=== PATIENT | female | born 1980 | race Caucasian/White ===

== ENCOUNTER → 2019-01-26 | Outpatient (CLI) | payer BC ==
[~2019-01-26] MED LIST: MULVITMIND PO; NUVA RING; PROBIOTIC1 EAC1 PO; Pepcid40 MG PO; Prednisone20 MG PO; SULTRIDS PO; TOPI50; WP THYROID PO; Zofran Odt8 MG SL
[2019-01-28 14:09] LABS: HPV 16 Negative (Negative); HPV 18 Negative (Negative); HPV OTHER HR TYPES Negative (Negative)
== END | disposition home or self-care (01) ==
LOC: LAB SHORT 11:02 → LAB 11:02
PROVIDERS: Nurse Practitioner Obstetrics & Gynecology
DX: Z01.419 Encounter for gynecological examination (general) (routine) without abnormal findings (principal)
CPT/HCPCS: 87624; G0123

== ENCOUNTER → 2020-02-02 | Outpatient (CLI) | payer BC ==
[2020-02-04 15:10] LABS: HPV 16 Negative (Negative); HPV 18 Negative (Negative); HPV OTHER HR TYPES Negative (Negative)
== END | disposition home or self-care (01) ==
LOC: LAB SHORT 10:31 → LAB 10:31
PROVIDERS: Advanced Practice Midwife
DX: Z01.419 Encounter for gynecological examination (general) (routine) without abnormal findings (principal)
CPT/HCPCS: 87624; G0123

== ENCOUNTER → 2021-07-10 | Outpatient (CLI) | payer BC ==
[2021-07-12 16:45] LABS: CORONAVIRUS (COVID19) CSH-NRL Negative (Negative)
== END | disposition home or self-care (01) ==
LOC: LAB SHORT 12:14 → LAB 12:14
PROVIDERS: Physician Assistant Medical
DX: Z20.822 Contact with and (suspected) exposure to COVID-19 (principal)
CPT/HCPCS: U0003

== ENCOUNTER → 2022-05-08 | Outpatient (CLI) | payer BC ==
[2022-05-09 15:10] LABS: HPV 16 Negative (Negative); HPV 18 Negative (Negative); HPV OTHER HR TYPES Negative (Negative)
== END | disposition home or self-care (01) ==
LOC: LAB 11:56 → LAB SHORT 11:56
PROVIDERS: Obstetrics & Gynecology
DX: Z01.419 Encounter for gynecological examination (general) (routine) without abnormal findings (principal)
CPT/HCPCS: 87624; G0123

== ENCOUNTER 2022-11-08 06:56 | Day surgery (SDC) | payer BC ==
[2022-11-07 14:49] LABS: BASOPHILS ABSOLUTE AUTO 0.06 K/mm3 (0.00-0.23); BASOPHILS PERCENT AUTO 1 % (0-2); EOSINOPHILS ABSOLUTE AUTO 0.04 K/mm3 (0.00-0.68); EOSINOPHILS PERCENT AUTO 0 % (0-6); Hematocrit 43.3 % (33.0-51.0); IMMATURE GRAN ABSOLUTE AUTO 0.02 K/mm3 (0.00-0.10); IMMATURE GRAN PERCENT AUTO 0 % (0-1); LYMPHOCYTES ABSOLUTE AUTO 2.31 K/mm3 (0.84-5.20); LYMPHOCYTES PERCENT AUTO 25 % (21-46); MONOCYTES ABSOLUTE AUTO 0.48 K/mm3 (0.16-1.47); MONOCYTES PERCENT AUTO 5 % (4-13); Mean Corpuscular HGB Conc 34.6 g/dL (31.5-36.5); Mean Corpuscular Volume 92 fL (80-100); Mean Platelet Volume 9.8 fL (9.1-12.4); NEUTROPHILS PERCENT AUTO 69 % (41-73); Platelet Count 297 K/mm3 (150-400); RDW Coefficient Variation 12.8 % (11.7-14.2); Red Blood Cell Count 4.69 M/mm3 (3.80-5.20); White Blood Cell Count 9.31 K/mm3 (4.00-11.30)
[2022-11-07 15:08] LABS: Bun/Creatinine Ratio 22.4 (12.0-20.0); Creatinine, Blood 0.71 mg/dL (0.40-1.00); Potassium, Blood 3.6 mmol/L (3.5-5.5)
[~2022-11-08] VITALS: Ht 157.5 cm; Wt 85.7 kg
[2022-11-08] MEDS ORDERED: ZOLP5 PO (07:31)
[2022-11-08] MEDS ORDERED: ALPRAZOLAM0.5 M1 PO (07:32)
--- NOTE | 2022-11-08 16:27 | NUR ---
DISCHARGE SUMMARY PT A&OX4, VSS/RA, SLIGHT N&V/ZOFRAN GIVEN - BARTOLO SMALL AMTS SOUP/H20, PAIN MANAGED, AMB IND, VOIDING, IV DC'D. DC INS PROVIDED. PT REP UNDERSTANDING THOSE INSTRUCTIONS INCLUDING FU APPT WITH SURGEON, OK TO SHOWER 11/09, NOTHING PER VAG.
== END 2022-11-08 16:30 | disposition home or self-care (01) ==
LOC: ORSCMMR 06:56 → ORD 08:30 → ORSCMMR 11:15 → SURS 12:06 → ORSCMMR 16:30
PROVIDERS: Obstetrics & Gynecology
PROC: 0UT74ZZ Resection of Bilateral Fallopian Tubes, Percutaneous Endoscopic Approach (ICD-10-PCS; principal; 2022-11-08 08:30)
PROC: 0UT94ZZ Resection of Uterus, Percutaneous Endoscopic Approach (ICD-10-PCS; principal; 2022-11-08 08:30)
PROC: 0UT14ZZ Resection of Left Ovary, Percutaneous Endoscopic Approach (ICD-10-PCS; principal; 2022-11-08 08:30)
DX: N99.85 Post endometrial ablation syndrome (principal); N94.6 Dysmenorrhea, unspecified; R10.2 Pelvic and perineal pain; N80.3C1 Endometriosis of the right uterosacral ligament, unspecified depth; D25.2 Subserosal leiomyoma of uterus; N72 Inflammatory disease of cervix uteri; N83.292 Other ovarian cyst, left side; Z79.899 Other long term (current) drug therapy; E66.9 Obesity, unspecified; Z68.34 Body mass index [BMI] 34.0-34.9, adult
CPT/HCPCS: 58571; S2900; 80048; 84703; 85025; 86850; 86900; 86901; 88305; 88307; A9270; J0690; J1100; J1885; J2250; J2405; J2704; J2765; J2795; J3010; J7120

== ENCOUNTER → 2025-01-18 | Outpatient (CLI) | payer BC ==
[~2025-01-18] MED LIST changes: +ALPRAZOLAM0.5 M1 PO; +ZOLP5 PO
[2025-01-22 18:28] LABS: HPV HIGH RISK BY TMA Not Detected; HPV SOURCE Vaginal
== END ==
LOC: LAB 17:03 → LAB SHORT 17:03
PROVIDERS: Family Medicine
DX: Z12.4 Encounter for screening for malignant neoplasm of cervix (principal)
CPT/HCPCS: 87624; G0123